=== PATIENT | female | born 1960 | race Caucasian/White ===

== ENCOUNTER 2023-01-27 20:24 | Outpatient (CLI) | payer OTHER | END 2023-01-27 23:59 | disposition left against medical advice (07) | LOC: EMS 20:24 | DX: S09.93XA Unspecified injury of face, initial encounter (principal); M79.645 Pain in left finger(s); W01.198A Fall on same level from slipping, tripping and stumbling with subsequent striking against other object, initial encounter; Y92.814 Boat as the place of occurrence of the external cause ==

== ENCOUNTER 2023-01-27 21:31 | Emergency (ER) | payer OTHER ==
[2023-01-27 21:43] VITALS: BP 139/55
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
--- NOTE | 2023-01-27 22:37 | CT Report ---
PROCEDURE: HEAD WO INDICATIONS: mechanical fall +HT no loc TECHNIQUE: Noncontrast 4.5 mm thick angled axial sections acquired from the foramen magnum to the vertex. For r adiation dose reduction, the following was used: automated exposure control, adjustment of mA and/or kV according to patient size. COMPARISON: None. FINDINGS: Image quality: Excellent. CSF spaces: Basal cisterns are patent. No extra-axial fluid collections. Ventricles are normal in size and shape. Brain: No intracranial hemorrhage, mass, or mass effect. Trivedi-white matter interface appears preser lucia. Skull and face: Calvarium and visualized facial bones are intact, without suspicious lesions. Sinuses: Visualized sinuses and mastoids are clear. IMPRESSION: 1. No acute intracranial abnormality. Reviewed by: Kendall Paniagua MD on 01/27/2023 10:36 PM PDT Approved by: Kendall Paniagua MD on 01/27/2023 10:36 PM PDT Station ID: [id number]
--- NOTE | 2023-01-27 22:54 | XRAY Report ---
PROCEDURE: Finger(s) LT INDICATIONS: 4th pip joint pain s/p fall TECHNIQUE: AP hand, 2 views of the fourth digit acquired. COMPARISON: None. FINDINGS: Bones: No fractures or dislocations. No suspicious bony lesions. Soft tissues: No suspicious soft tissue calcifications or masses. IMPRESSION: No acute bony abnormality. Reviewed by: Kendall Paniagua MD on 01/27/2023 10:52 PM PDT Approved by: Kendall Paniagua MD on 01/27/2023 10:52 PM PDT Station ID: [id number]
== END 2023-01-27 23:02 | disposition home or self-care (01) ==
LOC: ED 21:31
DX: S09.90XA Unspecified injury of head, initial encounter (principal); S01.501A Unspecified open wound of lip, initial encounter; M79.645 Pain in left finger(s); W19.XXXA Unspecified fall, initial encounter; Y92.814 Boat as the place of occurrence of the external cause
CPT/HCPCS: 99283